=== PATIENT | male | born 1940 | race Caucasian/White ===

== ENCOUNTER 2022-06-17 20:20 | Inpatient (IN) | payer MEDICARE, SELFPAY ==
--- NOTE | ~2022-06-17 | US_ITS ---
EXAMINATION: US soft tissue groin LT DATE: 06/20/2022 12:57 INDICATION: Left inguinal hernia. TECHNIQUE: Multiple grayscale and Doppler ultrasound images of the left groin were obtained. COMPARISON: None FINDINGS: There is an ill-defined mass in left inguinal region. IMPRESSION: 1. Ill-defined mass in left inguinal region, which may be changes of inguinal hernia repair. Hernia r epair and recurrent fat-containing hernia are not easily differentiated by imaging. Reviewed, dictated and finalized at location A. CAR FOREMAN IMPRESSION: 1. Ill-defined mass in left inguinal region, which may be changes of inguinal h ernia repair. Hernia repair and recurrent fat-containing hernia are not easily differentiated by imaging.
--- NOTE | ~2022-06-17 | XR_ITS ---
EXAMINATION: XR chest 2V Exam Date/Time: 06/17/2022 21:11 BENEFITS TECHNICIAN HISTORY: SOB Comparison: 05/31/2007. RESULT: Lines, tubes, and devices: None. Lungs and pleura: Mid and lower lung reticular and patchy groundglass opacities. Bilateral posterior costophrenic angle blunting Cardiomediastinal silhouette: Stable. Other: No acute osseous or upper abdominal finding. IMPRESSION: Pulmonary opacities most likely represent pulmonary edema, with small bilateral effusions. Infection is not excluded. Reviewed, dictated and finalized at location K. FITS TECHNICIAN
--- NOTE | ~2022-06-17 | MR_ITS ---
EXAMINATION: MR abdomen wo/w con DATE: 06/20/2022 12:31 INDICATION: Mass in the left kidney and inferior vena cava. TECHNIQUE: Magnetic resonance imaging (MRI) of the abdomen was performed without and with 14 mL Multi Rudy intravenous contrast. COMPARISON: Chest CT 06/17/2022 FINDINGS: There are small pleural effusions, right worse than left. Cardiomegaly is noted. No pericardial effus ion. The liver, gallbladder, spleen, pancreas, and adrenal glands are normal. There is a 3.6 cm cyst in right kidney. There is a 4.3 cm enhancing mass in left kidney upper pole. There is enhancing tumor thrombus in left renal vein extending to the infrarenal inferior vena cava. There is nonenhancing bl and thrombus in the inferior vena cava and right atrium. There are no dilated loops of bowel. There a re no pathologically enlarged lymph nodes. IMPRESSION: 1. 4.3 cm enhancing mass in left kidney upper pole, consistent with renal cell carcinoma. Enhancing t umor thrombus extends into left renal vein to the infrarenal inferior vena cava. Contiguous thrombus in the intrahepatic vena cava and right atrium is likely bland thrombus. 2. Small pleural effusions, right worse than left. Reviewed, dictated and finalized at location A. GER OF PURCHASING IMPRESSION: 1. 4.3 cm enhancing mass in left kidney upper pole, consistent with renal cell carcinoma. Enhancing tumor thrombus extends into left renal vein to the infrare nal inferior vena cava. Contiguous thrombus in the intrahepatic vena cava and r ight atrium is likely bland thrombus. 2. Small pleural effusions, right worse than left.
--- NOTE | ~2022-06-17 | CT_ITS ---
EXAMINATION: CTA chest PE protocol DATE: 06/17/2022 23:01 INDICATION: Hypoxia TECHNIQUE: Computed tomography angiography (CTA) of the chest was performed with 100 mL Omnipaque-350 intravenous contrast timed to evaluate the pulmonary arteries. Coronal maximum intensity projection 3D-reconstructions were created by the technologist. The dose-length product (DLP) was 658.80 mGy-cm. Automated exposure control and iterative reconstruction technique were employed. COMPARISON: None. FINDINGS: The pulmonary arteries are well-opacified. No pulmonary embolism is identified. Respiratory artifact mildly limits examination of subsegmental peripheral pulmonary arteries. There are small pl eural effusions. Cardiomegaly is noted. There is smooth interlobular septal thickening throughout the lungs. There are minimal airspace opacities of the lower lobes, right greater than left. No pneumoth orax is identified. There is ectasia of the ascending aorta measuring up to 4.3 cm. No dissection is identified. There is a 4.2 cm soft tissue density lesion of the left kidney upper pole. IMPRESSION: 1. No pulmonary embolus identified, sensitivity mildly limited by respiratory motion artifact. 2. Cardiomegaly of mild pulmonary edema. 3. Small pleural effusions with dependent airspace opacities of the lower lobes, atelectasis versus p neumonia. 4. Indeterminant lesion of the left kidney upper pole. Follow-up by CT or MRI without and with contra st is recommended. Reviewed, dictated and finalized at location A. OR GEOLOGIST IMPRESSION: 1. No pulmonary embolus identified, sensitivity mildly limited by respiratory m otion artifact. 2. Cardiomegaly of mild pulmonary edema. 3. Small pleural effusions with dependent airspace opacities of the lower lobes , atelectasis versus pneumonia. 4. Indeterminant lesion of the left kidney upper pole. Follow-up by CT or MRI w ithout and with contrast is recommended.
[2022-06-17 20:26] VITALS: BP 152/85; PULSE 63; RESP 26; TEMP 36.6; O2SAT 97
--- NOTE | 2022-06-17 20:33 | ECG_ITS ---
Measurements Intervals [place] Rate: 60 P: 230 VT: 267 QRS: -20 QRSD: 182 T: 38 QT: 468 QTc: 469 Interpretive Statements SINUS RHYTHM WITH FIRST DEGREE AV BLOCK LEFT BUNDLE BRANCH BLOCK [120+ ms QRS DURATION, 80+ ms Q/S IN V1/V2, 85+ ms R IN I/aVL/V5/V6] NO PREVIOUS ECG AVAILABLE FOR COMPARISON Electronically Signed On 06-18-2022 16:18:57 SAFETY MANAGER by Johnathan Tamez M.D.
[2022-06-17 20:38] VITALS: O2SAT 97
[2022-06-17 20:39] VITALS: PULSE 60; RESP 22; O2SAT 98
[2022-06-17 20:55] LABS: Basophils Percent Auto 0.2 % (0.2-1.2); Eosinophils Absolute Auto 0.3 K/mm3 (0-0.3); Eosinophils Percent Auto 2.9 % (0-4.4); Hematocrit 36.5 % (42.0-52.0); Hemoglobin 11.7 g/dL (14.0-18.0); Immature Granulocyte Absolute 0.02 K/mm3 (0.00-0.031); Immature Granulocyte Percent A 0.2 % (0-0.5); Lymphocytes Absolute Auto 1.08 K/mm3 (0.9-3.2); Lymphocytes Percent Auto 11.6 % (18.3-44.2); Mean Corpuscular HGB Conc 32.1 g/dl (32-36); Mean Corpuscular Hemoglobin 30.7 pg (26-34); Mean Corpuscular Volume 95.8 fl (80-100); Mean Platelet Volume 9.4 fl (7.4-10.4); Monocytes Absolute Auto 0.9 K/mm3 (0.1-0.6); Monocytes Percent Auto 9.1 % (2.6-8.5); Neutrophils Absolute Auto 7.1 K/mm3 (1.3-6.7); Platelet Count Result 212 k/mm3 (150-375); Red Blood Count 3.81 M/mm3 (4.6-6.20); Red Cell Distribution Width 13.8 % (11.5-14.5); White Blood Count 9.3 K/mm3 (4.5-10.0)
[2022-06-17 21:10] LABS: INR 1.2; Prothrombin Time 14.6 Seconds (11.1-14.7)
[2022-06-17 21:11] LABS: Alanine Aminotransferase 16 U/L (6-50); Albumin Level 4.6 g/dL (3.5-5.1); Alkaline Phosphatase 89 U/L (38-126); Anion Gap 7 mmol/L (8-16); Aspartate Amino Transferase 29 U/L (17-59); Bilirubin,Total 0.9 mg/dL (0.2-1.3); Blood Urea Nitrogen 28 mg/dL (9-20); Calcium 9.1 mg/dL (8.4-10.2); Carbon Dioxide 28 mmol/L (22-30); Chloride 101 mmol/L (98-107); Estimated CRCL calculation 29 ml/min; Estimated Glomerular Filt Rate 48; Glucose 103 mg/dL (65-110); Partial Thromboplastin Time 29.9 SECONDS (22.3-36.8); Potassium 4.4 mmol/L (3.4-5.0); Sodium 136 mmol/L (137-145)
[2022-06-17 21:23] LABS: NT Pro B Type Natriuretic Pept 4310 pg/mL (5-100); Troponin I < 0.012 ng/mL (0.000-0.034)
--- NOTE | 2022-06-17 21:58 | ED.GENADULT ---
HPI - General Adult General Chief complaint: Shortness of Breath/Dyspnea Stated complaint: SOB, Wheezing Time Seen by Provider: 06/17/22 21:03 History of Present Illness HPI narrative: This is a 81-year-old male with multiple medical problems presenting ED with shortness of breath. The patient's breathing has gotten steadily worse over the last 2 days. He has edema of his lower extremities worse on the right than the left. He has a history of CHF. He also says that he has been diagnosed with tumors masses on his kidneys and nodules in his lungs but has never gotten an actual dx of cancer. Patient denies fever, chills, chest pain, abdominal pain, urinary symptoms. Patient denies sick contacts at home. Patient is 88-89% on room air. Placed on 2 L by triage Related Data Allergies Allergy/AdvReac Type Severity Reaction Status Date / Time No Known Allergies Allergy Unknown Verified 06/17/22 20:39 Review of Systems Review of Systems: CONSTITUTIONAL: Denies night sweats. EYES: No eye pain ENT: Denies rhinorrhea CARDIOVASCULAR: Denies palpitations RESPIRATORY: Denies hemoptysis GASTROINTESTINAL: Denies hematemesis GENITOURINARY: Denies hematuria. SKIN: Denies rash MUSCULOSKELETAL: Denies myalgia. NEUROLOGIC: Denies weakness. PSYCHIATRIC: Denies delusions PMFSH Past Medical History Medical History CAD (coronary artery disease) CHF (congestive heart failure) CVA (cerebral vascular accident) HTN (hypertension) Renal mass Surgical History Surgical History H/O hernia repair History of hand surgery Right Social History Social History Gender identity (if verbalized by the patient): Male Exam Narrative: APPEARANCE: No apparent distress. patient is polite during the interview. Head: atraumatic. EYES: EOMI, NOSE: Atraumatic NECK: Trachea midline RESPIRATORY: No increased rate of breathing , clear auscultation, hypoxic on room air requiring 2lpm 02 CARDIOVASCULAR: RRR, +2 pitting edema lower extremities worse on the left than the right ABDOMINAL: Non-distended, no tenderness, guarding or rebound MUSCULOSKELETAl: No obvious deformities NEURO: Alert. Moving 4/4 extremities SKIN:: Warm, dry. Normal color PSYCHIATRIC: Normal affect Course Vital Signs Vital signs: Vital Signs Temperature 97.8 F 06/17/22 20:26 Pulse Rate 63 06/17/22 20:26 Respiratory Rate 26 H 06/17/22 20:26 Blood Pressure 152/85 H 06/17/22 20:26 Pulse Oximetry 97 06/17/22 20:26 Oxygen Delivery Nasal Cannula 06/17/22 20:26 Oxygen Flow Rate 2 06/17/22 20:26 Temperature 97.8 F 06/17/22 20:26 Pulse Rate 57 L 06/18/22 05:09 Respiratory Rate 20 06/18/22 05:09 Blood Pressure 125/69 06/18/22 05:09 Pulse Oximetry 97 06/18/22 05:09 Oxygen Delivery Nasal Cannula 06/17/22 20:38 Oxygen Flow Rate 2 06/17/22 20:38 Medical Decision Making MDM Narrative Medical decision making narrative: this is an 81-year-old male presenting ED with difficulty breathing. Patient is requiring supplemental oxygen at this time. Given his age a broad workup has been ordered. He also has edema of the lower extremities greater on the left than the right. Additionally she has a questionable history of cancer. A CT PE has been ordered. EKG interpretation: Rhythm [sinus], Rate 60, [place] -[normal], OR - prolonged, QRS LBBB, QTC [normal], T waves -[negative for concerning inversions], ST Segments - [Negative for concerning elevations] Final interpretations: normal sinus rhythm with first-degree AV block and left bundle branch block, I have no previous EKGs which to compare. lab work significant for a BNP of 4300. Troponins were negative. COVID and flu were negative. Chest x-ray was interpreted as pulmonary edema. Patient was given Lasix. I was called to
[2022-06-17 22:21] VITALS: PULSE 77; RESP 22; O2SAT 96
[2022-06-17 23:19] VITALS: PULSE 61; RESP 20; O2SAT 95
[2022-06-17 23:48] LABS: Influenza A QL RT-PCR Negative (Negative); Influenza B QL RT-PCR Negative (Negative); SARS-CoV-2 RNA PCR Negative
[2022-06-18] VITALS (25 sets, daily range): BP systolic 118–146; BP diastolic 60–76; PULSE 55–72; RESP 14–25; TEMP 36.2; O2SAT 92–98; BMI 27.7; BMI 28.6
[2022-06-18] MEDS: FUROSEMIDE INJ 40 MG/4 ML VIAL IV PUSH (00:55)
--- NOTE | 2022-06-18 02:06 | PC.NURSE ---
Pt urinating blood. EDP notified, new orders placed.
[2022-06-18 02:39] LABS: Add Urine Microscopic? YES; Appearance Urine Turbid (Clear); Bilirubin Urine Negative (Negative); Color Urine Red (Yellow); Glucose Urine UA Negative (Negative); Ketones Urine Negative (Negative); Leukocyte Esterase Ur Negative LEU/UL (Negative); Nitrate Urine Negative (Negative); Protein Urine 3+ mg/dL (Negative); Specific Grav Ur 1.015 (1.001-1.035); Urobilinogen Urine 0.2 mg/dL (<2.0); pH Urine 5.5 (5.0-9.0)
[2022-06-18 02:48] LABS: RBC Urine >75 /hpf (0-2)
[2022-06-18 02:50] LABS: Blood Urine 3+ (Negative)
[2022-06-18 02:59] LABS: WBC Urine Rare /hpf
--- NOTE | 2022-06-18 13:21 | PM.IMHP ---
H&P: HPI History of Present Illness Date/Time: 06/18/22 13:21 Chief Complaint: the patient is 81-year-old male with history of congestive heart failure, history of smoking, history of hypertension and coronary disease came to hospital complaining of shortness of breath. patient has been getting worse over the last 2 days difficulty ambulating also had lower extremity edema both legs. Patient denies any fever chills abdominal pain urgency or frequency of urination. In the emergency room patient noted to require oxygen. patient had a chest x-ray done which consistent with pulmonary edema and a BNP of 4300. Patient's COVID and flu was negative. EKG showed normal sinus rhythm with first-degree AV block and left bundle branch block. CT of the chest was done which showed no definitive PE. There is a finding of aortic aneurysm without dissection measuring 4.3 cm and a small right and left pleural effusion Review of Systems Review of Systems: No fevers chills nausea vomiting. No double vision no blurry vision. No difficulty hearing or sinus complaints. No chest pain has shortness of breath no fever palpitation dizziness ankle swelling. No coughing wheezing chills. No nausea constipation diarrhea abdominal pain reflux. No urgency frequency of urination. No hematuria. No skin rash eczema. No anxiety depression difficulty sleeping. No bleeding gums enlarged glands. No muscle ache back pain joint stiffness. No loss of strength numbness headache tremor or loss of memory. [facility] Past Medical History Medical History CAD (coronary artery disease) CHF (congestive heart failure) CVA (cerebral vascular accident) HTN (hypertension) Renal mass Surgical History Surgical History H/O hernia repair History of hand surgery Right Social History Social History Gender identity (if verbalized by the patient): Male Meds Home Medications and Allergies Home Medications Medication Instructions Recorded Confirmed Type amoxicillin 875 mg-potassium 1 tablet PO Q12H #14 tabs 05/17/19 Rx clavulanate 125 mg tablet (Augmentin) Allergies Allergy/AdvReac Type Severity Reaction Status Date / Time No Known Allergies Allergy Unknown Verified 06/17/22 20:39 Vital Signs Vital Signs - 24 hr 06/17/22 20:26 06/17/22 20:38 06/17/22 20:39 Temperature 36.6 C Pulse Rate 63 60 Respiratory Rate 26 H 22 H Blood Pressure 152/85 H Pulse Oximetry 97 97 98 Oxygen Delivery Nasal Cannula Nasal Cannula Oxygen Flow Rate 2 2 06/17/22 22:21 06/17/22 23:19 06/18/22 00:08 Temperature Pulse Rate 77 61 68 Respiratory Rate 22 H 20 18 Blood Pressure 146/69 H Pulse Oximetry 96 95 95 Oxygen Delivery Oxygen Flow Rate 06/18/22 00:51 06/18/22 02:09 06/18/22 03:42 Temperature Pulse Rate 59 L 58 L 57 L Respiratory Rate 22 H 19 20 Blood Pressure 136/76 142/71 H 124/64 Pulse Oximetry 96 98 97 Oxygen Delivery Oxygen Flow Rate 06/18/22 05:09 06/18/22 06:01 06/18/22 07:14 Temperature Pulse Rate 57 L 68 62 Respiratory Rate 20 18 22 H Blood Pressure 125/69 119/60 125/63 Pulse Oximetry 97 96 97 Oxygen Delivery Oxygen Flow Rate 06/18/22 07:16 06/18/22 07:31 06/18/22 08:01 Temperature Pulse Rate 55 L 58 L Respiratory Rate 18 19 Blood Pressure 135/68 132/60 Pulse Oximetry 97 97 97 Oxygen Delivery Nasal Cannula Oxygen Flow Rate 2 06/18/22 08:31 06/18/22 10:01 06/18/22 10:02 Temperature Pulse Rate 63 58 L 58 L Respiratory Rate 14 20 25 H Blood Pressure 118/68 126/71 Pulse Oximetry 98 98 Oxygen Delivery Oxygen Flow Rate 06/18/22 10:15 06/18/22 10:30 06/18/22 10:31 Temperature Pulse Rate 60 65 62 Respiratory Rate 21 H 24 H 18 Blood Pressure 123/68 Pulse Oximetry Oxyge
--- NOTE | 2022-06-18 15:04 | ADMGEN ---
This patient, Cesar Holden, was admitted to Medical Room 346-. Patient/family oriented to hospital policies and general routines including ID bracelet, bed and alarms, visiting hours, pain management, procedures, bathroom and other care routines, personal items, smoking policy, room service/diet, and visiting hours. Information on how to activate the Rapid Response Team has been discussed. Patient/Family are encouraged to report perceived risks to care and to ask questions if they do not understand what they are told or what they should do.
[2022-06-18 15:30] LABS: Basophils Percent Auto 0.2 % (0.2-1.2); Eosinophils Absolute Auto 0.2 K/mm3 (0-0.3); Eosinophils Percent Auto 1.9 % (0-4.4); Hematocrit 35.4 % (42.0-52.0); Hemoglobin 11.3 g/dL (14.0-18.0); Immature Granulocyte Absolute 0.03 K/mm3 (0.00-0.031); Immature Granulocyte Percent A 0.4 % (0-0.5); Lymphocytes Absolute Auto 0.85 K/mm3 (0.9-3.2); Lymphocytes Percent Auto 10.6 % (18.3-44.2); Mean Corpuscular HGB Conc 31.9 g/dl (32-36); Mean Corpuscular Hemoglobin 29.8 pg (26-34); Mean Corpuscular Volume 93.4 fl (80-100); Mean Platelet Volume 9.6 fl (7.4-10.4); Monocytes Absolute Auto 0.7 K/mm3 (0.1-0.6); Monocytes Percent Auto 9.1 % (2.6-8.5); Neutrophils Absolute Auto 6.2 K/mm3 (1.3-6.7); Neutrophils Percent Auto 77.8 % (45.5-73.1); Platelet Count Result 219 k/mm3 (150-375); Red Blood Count 3.79 M/mm3 (4.6-6.20); Red Cell Distribution Width 13.6 % (11.5-14.5)
[2022-06-18 15:40] LABS: Cholesterol 130 mg/dL (0-200); HDL Direct 36 mg/dL; Triglycerides 118 mg/dL (<150)
[2022-06-18 15:51] LABS: LDL Cholesterol Direct 62 mg/dL
[2022-06-18 16:50] LABS: Free T4 Free Thyroxine 1.19 ng/mL (0.78-2.19)
[2022-06-18 17:24] LABS: Hemoglobin A1C 5.6 % (<5.7)
[2022-06-18] MEDS: POTASSIUM CITRATE 5 MEQ TAB CR 10 MEQ PO (17:24)
[2022-06-18] MEDS: ATORVASTATIN 40 MG TABLET PO (17:24)
[2022-06-18] MEDS: ENOXAPARIN 40 MG/0.4 ML SYRINGE SUB-Q (17:24)
--- NOTE | 2022-06-18 21:11 | WPDURCON ---
Assessment and Plan Assessment and plan (1) Renal insufficiency, mild: Code(s): N28.9 - Disorder of kidney and ureter, unspecified Status: Acute Assessment and Plan: Unclear etiology, will suggest a bladder scan to rule out retention. (2) Renal mass: Code(s): N28.89 - Other specified disorders of kidney and ureter Status: Acute Assessment and Plan: Will need to do a CT abdomen and pelvis with and without contrast when creatinine stabilizes to further assess mass. I plan to have him follow up as an outpatient with our partner Dr. Be to discuss management. No definitive management of the mass will be done while hospitalized. (3) Hematuria: Code(s): R31.9 - Hematuria, unspecified Status: Acute Assessment and Plan: Secondary to mass versus, enoxaparin or possible UTI. Patient seems to be urinating well. Obtain a urine culture. Urology Consult Note HPI Date Seen: 06/18/22 Time Seen: 11:30 Requesting Physician: Alondra Pulliam DO Primary Care Provider: UNKNOWN,DOCTOR Consult Narrative Reason for consult: Left Renal Mass Narrative: Cesar Holden is a 81 year old male who presented to the ER for CHF exacerbation with SOB and BLE edema. He had a CTA and was incidentally found to have a left renal mass. We have been consulted to further evaluate. THe patient states that he knew about the mass and first learned about it one month ago. His PCP at [facility] Dr. Velasquez ordered a scan on him and found the left renal mass and a mass in his lung as well. He states he has not seen a urologist about this mass thus far. His creatinine is 1.40, but there are no others for comparison to a baseline number and the patient is unsure of his normal kidney function. His WBC is 9.3, but UA shows hematuria, but is otherwise negative for nitrites and leukocytes. He does state he urinates often, but denies hesitancy, straining or difficulty emptying his bladder. No urine culture has been ordered. Review of Systems Cardiovascular: Cardiovascular: Denies chest pain Respiratory: Respiratory: Reports no additional respiratory complaints Gastrointestinal: Gastrointestinal: Denies abdominal pain, Denies nausea and Denies vomiting Genitourinary: Genitourinary: Denies hematuria, Denies dysuria, Reports flank pain, Reports urinary frequency, Denies urinary hesitancy, Denies urinary incontinence and Denies urinary urgency COUNTS INCLUDE 234 BEDS AT THE [facility] Past Medical History Medical History CAD (coronary artery disease) CHF (congestive heart failure) CVA (cerebral vascular accident) HTN (hypertension) Renal mass Surgical History Surgical History H/O hernia repair History of hand surgery Right Social History Social History Smoking status: Former smoker Tobacco type: pipe Additional smoking assessment comments: smoked 30 years ago Alcohol intake: former Substance use: never Lack of Transportation: No Lack of Food: Never True Current Housing: I Have Housing Concerned About Future Housing: Decline to Answer Difficulty Paying Gas/Electric Bills: Decline to Answer Difficulty Paying for Meds: Decline to Answer Currently Unemployed: Decline to Answer Education: Don't Know Difficulty w/ Childcare or Family Care: Decline to Answer Gender identity (if verbalized by the patient): Male Spiritual care concerns: No Meds Home Medications and Allergies Home Medications Medication Instructions Recorded Confirmed Type albuterol sulfate 90 mcg/actuation 90 mcg inhalation Q4H PRN 06/18/22 06/18/22 History aerosol inhaler Shortness Of Breath atorvastatin 20 mg tablet 20 mg PO DAILY 06/18/22 06/18/22 History carvedilol 25 mg tablet 25 mg PO Q12-24H 06/18/22 06/18/22 History citalopram 20 mg tablet 20 mg PO DAILY 12
[2022-06-19] VITALS (10 sets, daily range): BP systolic 130–135; BP diastolic 58–70; PULSE 60–90; RESP 16–18; TEMP 36.2–36.5; O2SAT 93–97
--- NOTE | 2022-06-19 | ECHO_ITS ---
Patient Info Name: Cesar Holden Age: 81 years : 1940 Gender: Male Ht: 63 in Wt: 157 lbs BSA: 1.80 m2 HR: 78 bpm BP: 130 / 70 mmHg Technical Quality: Good Exam Date: 06/19/2022 10:17 AM Exam Location: [facility] Pulmonary Exam Room: 346 Patient Status: Outpatient Admit Date: 06/18/2022 Staff Ordering Physician: Ye Cordero MD Scout Leaser: Shruti lBake RCS Attending Provider: Alondra Pulliam DO Exam Type: CA echo doppler color flow Study Info Indications - cva Complete two-dimensional, color flow and Doppler transthoracic echocardiogram is performed. Summary 1. Complete two-dimensional, color flow and Doppler transthoracic echocardiogram is performed. 2. Left ventricular chamber dimension is moderately enlarged. 3. Left ventricular systolic function is moderately reduced, estimated at 35-40%. 4. Left ventricular septal wall motion is abnormal with septal motion related to bundle branch block. 5. E/e' 11 is mildly elevated. 6. Left atrial chamber dimension is severely enlarged. 7. Right atrial chamber dimension is severely enlarged. 8. 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 It appears there is a long thrombus attached to myxoma extending into inferior vena cava. 9. There is moderate aortic valve sclerosis. 10. There is moderate aortic valve regurgitation. 11. There is mild to moderate mitral valve regurgitation. 12. Mild pulmonary hypertension, estimated pulmonary arterial systolic pressure is 48 mmHg. 13. There is trace pulmonic regurgitation. Left Ventricle E/e' 11 is mildly elevated. Left ventricular chamber dimension is moderately enlarged. Left ventricular systolic function is moderately reduced, estimated at 35-40%. Left ventricular septal wall motion is abnormal with septal motion related to bundle branch block. Right Ventricle Right ventricular systolic function is normal and with normal TAPSE 2.7 cm. Right ventricular chamber dimension is normal. Left Atria Left atrial chamber dimension is severely enlarged. 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 It appears there is a long thrombus attached to myxoma extending into inferior vena cava. Right atrial chamber dimension is severely enlarged. Aortic Valve The aortic valve is trileaflet. There is moderate aortic valve sclerosis. There is no aortic valve stenosis. There is moderate aortic valve regurgitation. Pulmonic Valve There is trace pulmonic regurgitation. Mitral Valve There is no mitral valve stenosis. There is mild to moderate mitral valve regurgitation. Tricuspid Valve There is no tricuspid valve regurgitation. Mild pulmonary hypertension, estimated pulmonary arterial systolic pressure is 48 mmHg. Pericardium/Pleural There is no pericardial effusion. Inferior Vena Cava Normal inferior vena cava with >50% collapse upon inspiration consistent with normal right atrial pressure, 5 mmHg. Aorta The aortic root size at the sinus of Valsalva is normal. Left Ventricular Outflow Tract Name Value Normal LVOT 2D LVOT Diameter 2.1 cm
[2022-06-19 05:49] LABS: Basophils Percent Auto 0.3 % (0.2-1.2); Eosinophils Absolute Auto 0.2 K/mm3 (0-0.3); Eosinophils Percent Auto 3.1 % (0-4.4); Hematocrit 33.7 % (42.0-52.0); Hemoglobin 10.9 g/dL (14.0-18.0); Immature Granulocyte Absolute 0.02 K/mm3 (0.00-0.031); Immature Granulocyte Percent A 0.3 % (0-0.5); Lymphocytes Absolute Auto 0.98 K/mm3 (0.9-3.2); Lymphocytes Percent Auto 12.5 % (18.3-44.2); Mean Corpuscular HGB Conc 32.3 g/dl (32-36); Mean Corpuscular Hemoglobin 30.2 pg (26-34); Mean Corpuscular Volume 93.4 fl (80-100); Mean Platelet Volume 9.6 fl (7.4-10.4); Monocytes Percent Auto 12.8 % (2.6-8.5); Neutrophils Absolute Auto 5.6 K/mm3 (1.3-6.7); Platelet Count Result 210 k/mm3 (150-375); Red Blood Count 3.61 M/mm3 (4.6-6.20); Red Cell Distribution Width 13.5 % (11.5-14.5); White Blood Count 7.8 K/mm3 (4.5-10.0)
[2022-06-19 06:04] LABS: Anion Gap 6 mmol/L (8-16); Blood Urea Nitrogen 25 mg/dL (9-20); Calcium 8.6 mg/dL (8.4-10.2); Carbon Dioxide 32 mmol/L (22-30); Chloride 100 mmol/L (98-107); Estimated CRCL calculation 31 ml/min; Estimated Glomerular Filt Rate 48; Glucose 95 mg/dL (65-110); Potassium 3.3 mmol/L (3.4-5.0); Sodium 138 mmol/L (137-145)
[2022-06-19] MEDS: ATORVASTATIN 40 MG TABLET PO (09:27)
[2022-06-19] MEDS: POTASSIUM CITRATE 5 MEQ TAB CR 10 MEQ PO (09:27)
[2022-06-19] MEDS: FUROSEMIDE INJ 40 MG/4 ML VIAL IV PUSH (09:27)
[2022-06-19] MEDS: ENOXAPARIN 40 MG/0.4 ML SYRINGE SUB-Q (09:27)
--- NOTE | 2022-06-19 10:37 | PM.IMPN ---
Progress Note: A&P Assessment and Plan (1) CHF (congestive heart failure): Code(s): I50.9 - Heart failure, unspecified Status: Acute Assessment and Plan: BNP elevated. 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 Patient appears clinically improved. -Cardiology consulted for atrial myxoma and new onset heart failure -Continue carvedilol -Continue losartan -Enoxaparin 1mg/kg BID ordered (2) Renal mass: Code(s): N28.89 - Other specified disorders of kidney and ureter Status: Acute Assessment and Plan: Noted on CTA chest to rule out PE - Indeterminant lesion of the left kidney upper pole. Follow-up by CT or MRI without and with contrast is recommended, but due to active diuresis with furosemide as well as what appears to be acute kidney injury versus chronic kidney disease, will defer additional imaging for today. Plus patient was just given dye for CTA chest. -Will discuss risk/benefits with patient -Will discuss if CT with and without contrast can be done with current creatinine of 1.4 -Urology plans for no additional management or intervention while inpatient at this time (3) CAD (coronary artery disease): Code(s): I25.10 - Atherosclerotic heart disease of circle coronary artery without angina pectoris Status: Acute Assessment and Plan: Continue aspirin statin beta-steve. (4) HTN (hypertension): Code(s): I10 - Essential (primary) hypertension Status: Acute Assessment and Plan: Continue carvedilol and losartan. Will monitor. (5) Renal insufficiency, mild: Code(s): N28.9 - Disorder of kidney and ureter, unspecified Status: Acute Assessment and Plan: Unclear if this new or chronic. Will monitor. -Avoid nephrotoxic agents -Renally dose medications Plan DVT prophylaxis. GI prophylaxis. All records reviewed Discussed plan of care with the nursing staff and with the patient in detail. Answered all questions and concerns from the patient. All labs have been reviewed. Code status updated dictation may have been done utilizing a voice recognition system. Attempts have been made to correct errors. However, there may be uncorrected grammatical, spelling, and recognition errors present. Subjective Date/time seen: 06/19/22 10:37 Patient says is having excessive urination due to the furosemide. Nursing reports patient has significant dribbling on the floor when attempting to go to the restroom instead of using the urinal. Patient daughter who is at bedside says she has been unsuccessful in her attempts to help the patient use the urinal. Patient says he feels better overall. Denies shortness of breath or difficulty breathing. Review of Systems Respiratory: Respiratory: Denies dyspnea Genitourinary: Genitourinary: Reports urinary frequency, Reports urinary incontinence and Reports urinary urgency Exam Narrative: GENERAL: NAD, cooperative HEENT: Normocephalic, atraumatic, anicteric NECK: Supple CV: Normal S1, S2, RRR, No MRG RESP: CTAB, Normal work of breathing. EXTREMITIES: Warm and well perfused, no clubbing, cyanosis, or edema. SKIN: warm, dry and intact. NEURO: CN II-XII grossly intact. Objective Data Vital Signs Vital Signs: Vital Signs - 24 hr 06/18/22 10:45 06/18/22 11:00 06/18/22 11:01 Temperature Pulse Rate 64 63 63 Respiratory Rate 23 H 21 H 24 H Blood Pressure 130/70 Pulse Oximetry Oxygen Delivery Oxygen Flow Rate 06/18/22 13:10 06/18/22 14:30 06/18/22 16:00 Temperature Pulse Rate 69 60 Respiratory Rate 25 H Blood Pressure 131/75 Pulse Oximetry 98 98 Oxygen Delivery Nasal Cannula Oxygen Flow Rate 2 06/18/22 20:43 06/18/22 23:57 06/18/22 20:00 [facility]
--- NOTE | 2022-06-19 12:58 | PCCARD ---
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 YOUNG MUSA
[2022-06-19] MEDS: ENOXAPARIN 80 MG/0.8 ML SYRINGE 71 MG SUB-Q (22:00)
[2022-06-20] VITALS (10 sets, daily range): BP systolic 125–134; BP diastolic 63–71; PULSE 65–77; RESP 18–27; TEMP 35.9–36.6; O2SAT 92–97
[2022-06-20 06:45] LABS: Anion Gap 6 mmol/L (8-16); Blood Urea Nitrogen 25 mg/dL (9-20); Calcium 8.9 mg/dL (8.4-10.2); Carbon Dioxide 33 mmol/L (22-30); Chloride 102 mmol/L (98-107); Estimated CRCL calculation 29 ml/min; Estimated Glomerular Filt Rate 45; Glucose 92 mg/dL (65-110); Phosphorus 3.4 mg/dL (2.5-4.5); Potassium 3.6 mmol/L (3.4-5.0); Sodium 141 mmol/L (137-145)
--- NOTE | 2022-06-20 08:39 | PM.IMPN ---
Progress Note: A&P Assessment and Plan (1) CHF (congestive heart failure): Code(s): I50.9 - Heart failure, unspecified Status: Acute Assessment and Plan: BNP elevated. 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 Patient appears clinically improved with diuresis. -Appreciate Cardiology recommendations -Continue carvedilol -Continue losartan -Enoxaparin 1mg/kg BID (2) Renal mass: Code(s): N28.89 - Other specified disorders of kidney and ureter Status: Acute Assessment and Plan: Noted on CTA chest to rule out PE - Indeterminant lesion of the left kidney upper pole. MRI abdomen shows 4.3 cm enchancing mass of the left kidney upper pole, consistent with renal cell carcinoma. Discussed patient with Urology who will review the images and make decision if patient needs Urology to do anything else at this time. (3) CAD (coronary artery disease): Code(s): I25.10 - Atherosclerotic heart disease of [place] coronary artery without angina pectoris Status: Acute Assessment and Plan: Continue aspirin statin beta-steve. (4) HTN (hypertension): Code(s): I10 - Essential (primary) hypertension Status: Acute Assessment and Plan: Continue carvedilol and losartan. Will monitor. (5) Renal insufficiency, mild: Code(s): N28.9 - Disorder of kidney and ureter, unspecified Status: Acute Assessment and Plan: Unclear if this new or chronic. Will monitor. -Avoid nephrotoxic agents -Renally dose medications (6) Thrombus: Code(s): I82.90 - Acute embolism and thrombosis of unspecified vein Status: Acute Assessment and Plan: Patient discussed with Cardiology multiple times today. MRI ordered earlier in the day shows contiguous thrombus in the intrahepatic vena cava and right atrium. Patient is anticoagulated. Cardiology will discuss possible transfer to higher level of care for possible thrombectomy. -Continue enoxaparin BID Subjective Date/time seen: 06/20/22 08:39 Patient says he has had multiple clots in the past and that he and his Cuff Cutter decided no intervention was best given his overall health. Denies shortness of breath or difficulty breathing. Says he urinated a lot yesterday. Furosemide held this morning due to increase in creatinine. Review of Systems Respiratory: Respiratory: Denies dyspnea Genitourinary: Genitourinary: Reports urinary frequency Exam Narrative: GENERAL: NAD, cooperative HEENT: Normocephalic, atraumatic, anicteric NECK: Supple CV: Normal S1, S2, RRR, No MRG RESP: CTAB, Normal work of breathing. EXTREMITIES: Warm and well perfused, no clubbing, cyanosis, or edema. SKIN: warm, dry and intact. NEURO: CN II-XII grossly intact. Objective Data Vital Signs Vital Signs: Vital Signs - 24 hr 06/19/22 09:00 06/19/22 09:00 06/19/22 14:00 Temperature 36.3 C L Pulse Rate 60 73 Respiratory Rate 18 Blood Pressure 130/70 Pulse Oximetry 93 93 Oxygen Delivery Room Air 06/19/22 12:00 06/19/22 16:00 06/19/22 19:40 Temperature 36.5 C Pulse Rate 63 66 70 Respiratory Rate 16 Blood Pressure 135/68 Pulse Oximetry 95 Oxygen Delivery 06/19/22 20:00 06/19/22 20:00 06/20/22 00:00 Temperature Pulse Rate 90 90 72 Respiratory Rate 16 Blood Pressure Pulse Oximetry 95 Oxygen Delivery Room Air 06/20/22 04:00 06/20/22 05:01 Temperature 36.6 C Pulse Rate 68 70 Respiratory Rate 20 Blood Pressure 134/71 Pulse Oximetry 92 Oxygen Delivery Intake/Output Intake/Output: Intake & Output 06/17/22 06/18/22 06/19/22 06/20/22 23:59 23:59 23:59 23:59 Intake Total 240 1060 0 Output Total 450 Balance 240 1060 -450 Meds/Results Me
--- NOTE | 2022-06-20 09:30 | PC.NURSE ---
Called pharmacy to tube up atorvastatin
--- NOTE | 2022-06-20 09:43 | PM.CNCAR ---
Assessment and Plan Assessment and plan (1) Right atrial mass: Code(s): I51.89 - Other ill-defined heart diseases Status: Acute Assessment and Plan: Mass in right atrium noted. Personally reviewed, I doubt it is attached to the right atrium. It does extend from my mobile mass in the inferior vena cava I suspect that this is either a Venous clot in transit or renal artery carcinoma that extends up the IVC into the right atrium, rather than a myxoma. Reviewed CT CT scan with Dr. Lacey. Not good opacification of the right atrium and none of the IVC. However there is probably a renal mass which may extend into the renal vein and perhaps into the IVC, not well seen due to lack of contrast in this area. May be an invasive renal cell carcinoma. he recommends further testing with either CTA or MRA . MRA of the chest and abdomen ordered counseled patient Has been started on Lovenox 1 milligram/kilosb.i.d.. May need to reduce to adjust to renal dysfunction (2) Acute systolic (congestive) heart failure: Code(s): I50.21 - Acute systolic (congestive) heart failure Status: Acute Assessment and Plan: new onset CHF, improving with diuresis. Continue IV Lasix daily BMP (3) Cardiomyopathy: Code(s): I42.9 - Cardiomyopathy, unspecified Status: Acute Assessment and Plan: EF 35-40%. Guideline directed medical therapy with Entresto, beta-steve, spironolactone and Farxiga/ Jardiance as blood pressure tolerates. (4) Renal mass: Code(s): N28.89 - Other specified disorders of kidney and ureter Status: Acute Assessment and Plan: Possible renal carcinoma as above MRI pending (5) CKD (chronic kidney disease): Code(s): N18.9 - Chronic kidney disease, unspecified Status: Acute Assessment and Plan: CKD,w some worsening w/ diuresis. Daily BMP History of Present Illness History of Present Illness Consult date/time: Aldo Holden is a 81 y.o.male whom I was asked to see at the request of Dr. Yaya Koehler for my advice and opinion regarding his left atrial mass/clot noted on Echo. Echo as below, mass on right atrial septum w/ possible attached thrombus in IVC. 06/20/22 09:43 Mr. Holden has a history of hypertension, hyperlipidemia and the left bundle-branch block. Her our EMR he has a history of CHF. 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 he was admitted to [facility] on 02/19/2022 after a fall with an occipital fracture and 0.2 cm depression. Neurosurgery evaluated him; did have some soft tissue swelling but no acute brain injury. Is no intervention recommended. Discharge on 02/21/2022. The patient was admitted to [facility] with shortness of breath, edema and heart failure. ProBNP was 4300 and chest x-ray consistent with CHF. He has been diuresing and improving with IV Lasix. He is a fair historian, and cannot tell me much about his presenting symptoms. He denies chest pain. He did have an episode of gross hematuria he mentions a couple days ago but can not recall that was before or after the Lou was placed. Reason For Visit: CHF/Hematuria Review of Systems Constitutional: Constitutional: Denies fever(s) Eyes: Eyes: Reports blurry vision ( trouble reading print) ENT: Denies epistaxis Cardiovascular: Cardiovascular: Denies chest pain, Denies pedal edema, Denies lightheadedness and Reports dyspnea Respiratory: Respiratory: Denies chest congestion, Denies dyspnea and Reports dyspnea on exertion Gastrointestinal: Gastrointestinal: Denies abdominal pain and Denies hematochezia Genitourinary: Genitourinary: Reports hematuria ( 1 episode recently per patient) Musculoskeletal: Musculoskeletal: Reports no additional musculoskeletal complaints Integumentary/Breasts: Skin/Breast: Reports system reviewed and no addition
[2022-06-20] MEDS: POTASSIUM CITRATE 5 MEQ TAB CR 10 MEQ PO (10:24)
[2022-06-20] MEDS: ENOXAPARIN 80 MG/0.8 ML SYRINGE 71 MG SUB-Q ×2 (10:25→20:41)
[2022-06-20] MEDS: carvediloL 25 MG TABLET PO (20:35)
[2022-06-20 21:10] LABS: Glucose Point of Care 163 mg/dl (65-105)
[2022-06-21] VITALS (12 sets, daily range): BP systolic 110–126; BP diastolic 57–73; PULSE 61–76; RESP 17–23; TEMP 36.1–36.8; O2SAT 94–99
[2022-06-21 06:38] LABS: Anion Gap 6 mmol/L (8-16); Blood Urea Nitrogen 31 mg/dL (9-20); Calcium 8.7 mg/dL (8.4-10.2); Carbon Dioxide 30 mmol/L (22-30); Chloride 101 mmol/L (98-107); Estimated CRCL calculation 31 ml/min; Estimated Glomerular Filt Rate 48; Glucose 96 mg/dL (65-110); Phosphorus 3.8 mg/dL (2.5-4.5); Potassium 3.9 mmol/L (3.4-5.0); Sodium 137 mmol/L (137-145)
[2022-06-21] MEDS: ATORVASTATIN 40 MG TABLET PO (09:49)
[2022-06-21] MEDS: carvediloL 25 MG TABLET PO (09:49)
[2022-06-21] MEDS: ENOXAPARIN 80 MG/0.8 ML SYRINGE 71 MG SUB-Q ×2 (09:49→22:40)
[2022-06-21] MEDS: POTASSIUM CITRATE 5 MEQ TAB CR 10 MEQ PO (09:49)
--- NOTE | 2022-06-21 11:37 | PM.PNCARD ---
Progress Note: A&P Assessment and Plan (1) Right atrial mass: Code(s): I51.89 - Other ill-defined heart diseases Status: Acute Assessment and Plan: Mass in right atrium noted. suspect that this is either a venous clot in transit or renal artery carcinoma that extends up the IVC into the right atrium, rather than a myxoma. Plan to transfer patient to [facility] for possible thrombectomy. Transfer has been initiated. Has been started on Lovenox 1 milligram/kilosb.i.d.. May need to reduce to adjust to renal dysfunction (2) Acute systolic (congestive) heart failure: Code(s): I50.21 - Acute systolic (congestive) heart failure Status: Acute Assessment and Plan: new onset CHF, improving with diuresis. Continue IV Lasix, probably shift to p.o. tomorrow. daily BMP (3) Cardiomyopathy: Code(s): I42.9 - Cardiomyopathy, unspecified Status: Acute Assessment and Plan: EF 35-40%. Guideline directed medical therapy with Entresto, beta-steve, spironolactone and Farxiga/ Jardiance as blood pressure tolerates. (4) Renal mass: Code(s): N28.89 - Other specified disorders of kidney and ureter Status: Acute Assessment and Plan: Possible renal carcinoma as above Per hospitalist (5) CKD (chronic kidney disease): Code(s): N18.9 - Chronic kidney disease, unspecified Status: Acute Assessment and Plan: CKD,w some worsening w/ diuresis. Daily BMP Subjective Date/time seen: 06/21/22 11:37 Cardiology follow up for RA mass, cardiomyopathy Feeling well this morning. No complaints of any kind. Discussed possible transfer to [facility] where his sergeant of corrections, Dr. Rosen is. He is amenable to this plan. Review of Systems Constitutional: Constitutional: Denies fever(s) Eyes: Eyes: Reports blurry vision ( trouble reading print) ENT: Denies epistaxis Cardiovascular: Cardiovascular: Denies chest pain, Denies pedal edema, Denies lightheadedness, Denies dyspnea and Reports dyspnea on exertion Respiratory: Respiratory: Denies chest congestion, Denies dyspnea and Reports dyspnea on exertion Gastrointestinal: Gastrointestinal: Denies abdominal pain and Denies hematochezia Genitourinary: Genitourinary: Reports hematuria ( 1 episode recently per patient) Musculoskeletal: Musculoskeletal: Reports no additional musculoskeletal complaints and Reports abnormal gait ( trouble with balance, occasional falls, uses a cane) Integumentary/Breasts: Skin/Breast: Reports system reviewed and no additional complaints, except as docu Neurologic: Reports system reviewed and no additional complaints, except as documented, Reports abnormal gait ( trouble with balance, occasional falls, uses a cane), Denies behavioral changes and Reports confusion ( decreased memory) Psychiatric: Psychiatric: Denies behavioral changes and Reports confusion ( decreased memory) Exam Const: General: cooperative, healthy appearing, comfortable and confusion ( decreased memory) Orientation/consciousness: oriented to person, patient oriented x3 and confusion ( decreased memory) Other: Sleeping when I entered the room but awakens to my voice. HENMT: Face/Nose/Sinus: no epistaxis Mouth: Yes moist mucous membranes Eyes: General: appearance normal, both eyes and all related structures EOM: EOMs intact bilaterally Neck: Neck: supple and no JVD Thyroid: thyroid normal Carotids: no bruits Resp: Effort & Inspection: normal respiratory effort Auscultation: clear to auscultation bilaterally Cardio: Rate: regular rate Rhythm: regular rhythm Heart sounds: no murmurs GI: Inspection: normal to inspection Urinary Catheter: Urinary Catheter: patent and draining and urine clear Skin: General skin exam: normal color and no rashes or lesions noted Neuro: General: oriented to person and patient oriented x3 Extrem: Right lower extremity: no edema Left low
[2022-06-22] VITALS: PULSE 63
[2022-06-22 01:35] VITALS: PULSE 79; RESP 33; O2SAT 96
[2022-06-22 04:00] VITALS: PULSE 65
[2022-06-22 05:54] LABS: Anion Gap 6 mmol/L (8-16); Blood Urea Nitrogen 41 mg/dL (9-20); Calcium 8.9 mg/dL (8.4-10.2); Carbon Dioxide 30 mmol/L (22-30); Chloride 104 mmol/L (98-107); Estimated CRCL calculation 29 ml/min; Estimated Glomerular Filt Rate 45; Glucose 97 mg/dL (65-110); Phosphorus 3.8 mg/dL (2.5-4.5); Potassium 4.1 mmol/L (3.4-5.0); Sodium 140 mmol/L (137-145)
[2022-06-22 06:00] VITALS: BP 131/62; PULSE 66; RESP 18; TEMP 36.6; O2SAT 95
[2022-06-22 09:22] VITALS: PULSE 65
[2022-06-22] MEDS: ATORVASTATIN 40 MG TABLET PO (09:22)
[2022-06-22] MEDS: carvediloL 25 MG TABLET PO (09:22)
[2022-06-22] MEDS: ENOXAPARIN 80 MG/0.8 ML SYRINGE 71 MG SUB-Q (09:23)
[2022-06-22] MEDS: POTASSIUM CITRATE 5 MEQ TAB CR 10 MEQ PO (09:24)
--- NOTE | 2022-06-22 11:59 | PM.TDS ---
Transfer Discharge Sum: Prov Provider Date of admission: 06/21/22 09:14 Primary care physician: UNKNOWN,DOCTOR Admitting clinician: Alondra Pulliam DO Consults: 06/18/22 Consult to Physician Routine Comment: Consulting Provider: Rudy Barnes Reason for consultation: Felix Hematuria Has provider been notified: Yes 06/20/22 07:00 Consult to Physician Routine Comment: Consulting Provider: Babak King call center representative/MD group to consult: Cardiology Reason for consultation: atrial mass with clot noted on ECHO Has provider been notified: Yes Attending physician on discharge: Woo Adrian DS: Admitting Diagnosis Discharge Date 06/22/2022 Admitting Diagnosis acute on chronic systolic congestive Heart failure DS: Discharge Diagnosis Discharge Diagnosis (1) CHF (congestive heart failure): Code(s): I50.9 - Heart failure, unspecified Status: Acute Assessment and Plan: BNP elevated. 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 Patient appears clinically improved with diuresis. -Appreciate Cardiology recommendations -Continue carvedilol -Continue losartan -Enoxaparin 1mg/kg BID (2) Renal mass: Code(s): N28.89 - Other specified disorders of kidney and ureter Status: Acute Assessment and Plan: Noted on CTA chest to rule out PE - Indeterminant lesion of the left kidney upper pole. MRI abdomen shows 4.3 cm enchancing mass of the left kidney upper pole, consistent with renal cell carcinoma. Discussed patient with Urology who will review the images and make decision if patient needs Urology to do anything else at this time. (3) CAD (coronary artery disease): Code(s): I25.10 - Atherosclerotic heart disease of [place] coronary artery without angina pectoris Status: Acute Assessment and Plan: Continue aspirin statin beta-steve. (4) HTN (hypertension): Code(s): I10 - Essential (primary) hypertension Status: Acute Assessment and Plan: Continue carvedilol and losartan. Will monitor. (5) Renal insufficiency, mild: Code(s): N28.9 - Disorder of kidney and ureter, unspecified Status: Acute Assessment and Plan: Unclear if this new or chronic. Will monitor. -Avoid nephrotoxic agents -Renally dose medications (6) Thrombus: Code(s): I82.90 - Acute embolism and thrombosis of unspecified vein Status: Acute Assessment and Plan: MRI ordered shows contiguous thrombus in the intrahepatic vena cava and right atrium. Patient is anticoagulated. Cardiology recommended possible transfer to higher level of care for possible thrombectomy. -Continue enoxaparin BID Transfer Discharge Sum: Med Medications Active and Home Medications: Home Medications albuterol sulfate 90 mcg/actuation aerosol inhaler 90 mcg inhalation Q4H PRN Shortness Of Breath 06/18/22 [History Confirmed 06/18/22] atorvastatin 20 mg tablet 20 mg PO DAILY 06/18/22 [History Confirmed 06/18/22] carvedilol 25 mg tablet 25 mg PO Q12-24H 06/18/22 [History Confirmed 06/18/22] citalopram 20 mg tablet 20 mg PO DAILY 06/18/22 [History Confirmed 06/18/22] losartan 50 mg tablet 50 mg PO DAILY 06/18/22 [History Confirmed 06/18/22] Active Medications Acetaminophen (Acetaminophen 325 Mg Tablet) 650 mg PO Q4H PRN PRN Reason: Mild Pain (1-3) or Fever Atorvastatin Calcium (Atorvastatin 40 Mg Tablet) 40 mg PO DAILY ALEXIS Last Admin: 06/22/22 09:22 Dose: 40 mg Carvedilol (Carvedilol 25 Mg Tablet) 25 mg PO Q12HR ALEXIS Last Admin: 06/22/22 09:22 Dose: 25 mg Enoxaparin Sodium (Enoxaparin 80 Mg/0.8 Ml Syringe) 71 mg SUB-Q Q12HR ALEXIS Last Admin: 06/22/22 09:23 Dose: 71 mg Furosemide (Furosemide Inj 40 Mg/4 Ml Vial) 40 mg IV
== END 2022-06-22 10:45 | disposition short-term general hospital (02) | DRG 291 ==
LOC: ANHED 06-18 05:22 → ANH3MEDSUR 06-18 08:01 → ANH3MED 06-18 14:18
PROVIDERS: Emergency Medicine; Family Medicine; Internal Medicine; Nurse Practitioner Adult Health; Admitting Provider Internal Medicine; Emergency Provider Emergency Medicine; Visit Provider Internal Medicine
DX: I11.0 Hypertensive heart disease with heart failure (principal); I50.21 Acute systolic (congestive) heart failure; I82.210 Acute embolism and thrombosis of superior vena cava; C64.2 Malignant neoplasm of left kidney, except renal pelvis; D15.1 Benign neoplasm of heart; I51.3 Intracardiac thrombosis, not elsewhere classified; I42.9 Cardiomyopathy, unspecified; I25.10 Atherosclerotic heart disease of native coronary artery without angina pectoris; I27.20 Pulmonary hypertension, unspecified; N28.89 Other specified disorders of kidney and ureter; Z20.822 Contact with and (suspected) exposure to COVID-19; Z66 Do not resuscitate; Z86.73 Personal history of transient ischemic attack (TIA), and cerebral infarction without residual deficits
CPT/HCPCS: 36415; 71046; 71275; 74183; 76882; 80048; 80053; 80061; 81001; 82948; 83036; 83735; 83880; 84100; 84439; 84484; 85025; 85610; 85730; 87086; 87636; 93005; 93306; 94660; 96372; 96376; 97161; 99285; A9270; A9577; G0378; J1650; J1940; Q9967